=== PATIENT | female | born 1955 | race Caucasian/White ===

== ENCOUNTER 2017-02-07 11:13 | Emergency (ER) | payer MEDICAID ==
[~2017-02-07] VITALS: Ht 162.6 cm; Wt 105.2 kg
--- NOTE | 2017-02-07 11:57 | NUR ---
TRIAGE Brought to triage room. Vital signs obtained. Temp of 100.5, coughing and aching all over. No ER rooms available. Will bring back as soon as a room opens up. LW
--- NOTE | 2017-02-07 14:10 | ER.PDOC ---
General Chief Complaint: General Complaint Stated Complaint: COUGH/CONGESTION,SORE THROAT,BODY ACHE Time seen by MD: 13:55 Source: patient Exam Limitations: no limitations History of Present Illness Initial Comments Cough, sore throat for two days, no fever Timing/Duration: gradual Severity: mild Associated Symptoms: sore throat, cough Constitutional: see HPI EENTM: see HPI Respiratory: see HPI Cardiovascular: see HPI Gastrointestinal: see HPI Genitourinary: see HPI Musculoskeletal: see HPI Skin: see HPI Psychiatric/Neurological: see HPI Endocrine: see HPI Hematologic/Lymphatic: see HPI Past Medical History Medical History: diabetes, hypertension, thyroid disease Surgical History: breast augmentation, cholecystectomy, knee, tonsillectomy, tubal LMP (females 10-50): postmenopause Social History Smoking: non-smoker Alcohol Use: none Drug Use: none Physical Exam General Appearance: alert, no distress Eye: eyes nml inspection, lids & conjunct. nml, PERRL, no nystagmus Ear: ear nml Nose: nose nml Throat: pharynx nml, airway nml Neck: nml inspection, supple Respiratory: rhonchi Abdomen: non-tender, no organomegaly CVS: reg rate & rhythm, heart sounds nml Skin: color nml, no rash, warm/dry Extremities: non-tender, nml ROM, no pedal edema NEURO/PSYCH: oriented x 3, CN's nml as tested, motor nml, sensation nml, mood/ affect nml Departure Time of Disposition: 14:09 Disposition: 01 HOME, SELF-CARE Impression: Primary Impression: Bronchitis Condition: Stable Patient Instructions: Acute Bronchitis, [id number] Referrals: PCP,UNKNOWN (PCP) PRIMARY CARE PROVIDER KEITH NOBLE MD February 07, 2017 14:10
[2017-02-07 14:25] VITALS: BP 155/98
== END 2017-02-07 14:21 | disposition home or self-care (01) ==
LOC: ER 11:13
DX: J40 Bronchitis, not specified as acute or chronic (principal); J02.9 Acute pharyngitis, unspecified; E07.9 Disorder of thyroid, unspecified; E11.9 Type 2 diabetes mellitus without complications; I10 Essential (primary) hypertension
CPT/HCPCS: 99283